=== PATIENT | male | born 1980 | race Caucasian/White ===

== ENCOUNTER → 2017-05-21 | Outpatient (CLI) | payer OTHER ==
[2017-05-21 10:35] LABS: HEMOGLOBIN 14.6 g/dL (14.1-18.0); LYMPH # 2.5 K/mm3 (0.7-4.5); LYMPH % 27.3 % (10-50)
[2017-05-21 12:13] LABS: BUN 15 mg/dL (7-18)
[2017-05-21 12:49] LABS: GFR (ESTIMATED) 95 ML/MIN (>60)
[2017-05-23 16:40] LABS: Antinuclear Antibodies, IFA Negative (.)
[2017-05-25 03:41] LABS: CCP Antibodies IgG/IgA 2 units (0-19)
== END ==
LOC: LAB 10:18
PROVIDERS: Internal Medicine Adolescent Medicine
DX: M12.9 Arthropathy, unspecified (principal); E78.00 Pure hypercholesterolemia, unspecified; R73.9 Hyperglycemia, unspecified; L40.9 Psoriasis, unspecified